=== PATIENT | female | born 2000 | race African-American/Black ===

== ENCOUNTER 2020-06-29 09:48 | Emergency (ER) | payer MEDICAID, OTHER ==
[~2020-06-29] VITALS: Ht 167.6 cm; Wt 63.5 kg
[2020-06-29 10:27] LABS: Urine Bacteria NONE SEEN /hpf (None Seen); Urine Blood Negative /uL (Negative); Urine Mucus FEW (None Seen); Urine Specific Gravity 1.032 (1.001-1.035); Urine WBC 10 /hpf (0 - 5)
[2020-06-29 10:30] LABS: Basophils # (auto) 0.1 10 ^3/uL (0-0.2); Basophils % (auto) 1.1 % (0.0-2.0); Eosinophils # (auto) 0.2 10 ^3/uL (0-0.8); Eosinophils % (auto) 2.5 % (0.0-7.0); Hematocrit 43.1 % (36.0-46.0); Hemoglobin 15.4 g/dL (12.2-16.2); Lymphocytes # (auto) 1.3 10 ^3/uL (0.4-5.4); Lymphocytes % (auto) 19.9 % (10.0-50.0); Mean Corpuscular Hemoglobin 29.5 pg (28.0-32.0); Mean Corpuscular Hgb Conc. 35.8 g/dL (32.0-36.0); Mean Corpuscular Volume 82.2 fL (80.0-100.0); Monocytes # (auto) 0.5 10 ^3/uL (0-1.3); Monocytes % (auto) 7.5 % (0.0-12.0); Neutrophils # (auto) 4.4 10 ^3/uL (1.6-8.6); Nucleated Red Blood Cells % 0.1 %; Platelet Count (auto) 342 10^3/uL (140-450); Red Blood Cells 5.24 10^6/uL (4.0-5.20); Red Cell Distribution Width 14.8 % (11.8-14.3); White Blood Cell 6.4 10^3/uL (4.4-10.8)
[2020-06-29 10:53] LABS: Albumin 4.1 g/dL (3.4-5.0); Calcium 8.6 mg/dL (8.5-10.1)
[2020-06-29 10:56] LABS: BUN/Creatinine Ratio 14.6; Bilirubin, Total 0.6 mg/dL (0.2-1.0)
[2020-06-29] MEDS ORDERED: cefTRIAXone W LIDOCAINE 1 GM IM IM ONE (11:45)
[2020-06-29 12:35] VITALS: BP 148/97
== END 2020-06-29 12:47 | disposition home or self-care (01) ==
LOC: ER 09:48
DX: N12 Tubulo-interstitial nephritis, not specified as acute or chronic (principal)
CPT/HCPCS: 36415; 74176; 80053; 81001; 84702; 85025; 96372; 99284; J0696

== ENCOUNTER 2020-10-15 11:17 | Emergency (ER) | payer MEDICAID ==
[~2020-10-15] VITALS: Ht 172.7 cm; Wt 81.6 kg
[2020-10-15 13:44] VITALS: BP 125/85
== END 2020-10-15 14:08 | disposition home or self-care (01) ==
LOC: ER 11:17
DX: K64.8 Other hemorrhoids (principal); K59.00 Constipation, unspecified